=== PATIENT | female | born 1960 | race Caucasian/White ===

== ENCOUNTER → 2022-03-04 08:05 | Outpatient (CLI) | payer OTHER, SELFPAY | PROVIDERS: Visit Provider Internal Medicine | DX: Z01.818 Encounter for other preprocedural examination (principal); Z20.822 Contact with and (suspected) exposure to COVID-19 | CPT/HCPCS: C9803; U0003; U0005 ==

== ENCOUNTER → 2022-08-27 09:40 | Outpatient (CLI) | payer OTHER, SELFPAY ==
[2022-08-27 10:41] LABS: Basophils # 0.1 K/mm3 (0-0.2); Basophils % 1.3 % (0.1-2.0); Eosinophils # 0.2 K/mm3 (0.0-0.4); Hematocrit 40.7 % (37.0-47.0); Hemoglobin 12.9 g/dL (12.2-16.2); Lymphocytes # 1.7 K/mm3 (0.7-4.5); Lymphocytes % 38.7 % (10-50); Mean Corpuscular HGB Conc 31.6 g/dL (31.8-35.4); Mean Corpuscular Hemoglobin 32.5 pg (27.0-31.2); Mean Corpuscular Volume 102.8 fl (81-99); Mean Platelet Volume 7.5 fl (7.4-10.4); Monocytes # 0.2 K/mm3 (0.1-1.0); Monocytes % 5.4 % (1.7-9.3); Neutrophils # 2.2 K/mm3 (1.8-7.8); Neutrophils % 50.5 % (37.0-80.0); Platelet Count 298 K/mm3 (142-424); Red Blood Count 3.96 M/mm3 (4.20-5.40); White Blood Count 4.4 K/mm3 (4.8-10.8)
[2022-08-27 11:02] LABS: Chloride 102 mmol/L (98-107)
[2022-08-27 11:03] LABS: Potassium 4.8 mmoL/L (3.5-5.1); Sodium 139 mmol/L (136-145)
[2022-08-27 11:05] LABS: Alanine Aminotransferase 10 U/L (12-78); Alkaline Phosphatase 60 U/L (38-126); Anion Gap 10.8 mEq/L (5-15); Aspartate Amino Transferase 18 U/L (14-36); Bilirubin,Total 0.4 mg/dl (0.2-1.3); Blood Urea Nitrogen 22 mg/dl (7-17); Carbon Dioxide 31 mmol/L (22.0-30.0); Cholesterol 154 mg/dl (140-200); Estimated Glomerular Filt Rate 86 ml/min (>60); GFR (African American) 104 ML/MIN (>60); Triglycerides 44 mg/dl (30-150); VLDL Cholesterol 9 mg/dL (0-40)
[2022-08-27 11:06] LABS: Albumin Level 4.1 g/dl (3.5-5.0); Albumin/Globulin Ratio 1.6 (1.1-1.8); Calcium 10.1 mg/dl (8.4-10.2); Chol/HDL Ratio 1.8 (1-3.5); Globulin 2.5 g/dL (1.3-3.2); Glucose 88 mg/dl (74-100); HDL Cholesterol 87 mg/dl (40-60); Total Protein,Serum 6.6 g/dl (6.3-8.2)
== END ==
PROVIDERS: PCP Internal Medicine; Visit Provider Internal Medicine
DX: M06.9 Rheumatoid arthritis, unspecified (principal); Z13.220 Encounter for screening for lipoid disorders
CPT/HCPCS: 36415; 80053; 80061; 85025

== ENCOUNTER 2025-06-25 09:21 | Outpatient (CLI) | payer OTHER, SELFPAY ==
--- NOTE | 2025-06-25 | XR_ITS ---
PROCEDURE INFORMATION: Exam: XR Right Shoulder Exam date and time: 06/25/2025 9:40 AM Age: 64 years old Clinical indication: Pain; Shoulder; Right; Additional info: Right shoulder pain x 4 months, rotator cuff vs arthritis TECHNIQUE: Imaging protocol: Radiologic exam of the right shoulder. Views: 2 or more views. COMPARISON: No relevant prior studies available. FINDINGS: Bones/joints: Mild dextroscoliosis of the midthoracic spine. Degenerative changes of the right acromioclavicular joint, with joint space narrowing and osteophyte formation. No acute fracture or dislocation. Soft tissues: Normal. IMPRESSION: No acute fracture or dislocation.
--- OUTSIDE RECORDS SUMMARY | 2025-06-25 09:30 | XMS_ITS | Encounter Summary ---
Author Organization [facility] ([place], [place], [place], [place]) Address [address] [place] [address] Care Team Providers Care Extractor Puller Name Role Phone Celeste Miller MD Primary Care Provider [phone] Reason for Referral * Mammography (Routine) - Authorized Specialty Diagnoses / Procedures Referred By Contac t Referred To Contact Radiology Diagnoses Visit for screening mammogram Procedures MM digital mammo screen with emilie bilateral Celeste Miller MD [address] [facility] [address] [place] [address] Phone: tel: fax: [facility] [address] [place] [phone] Phone: tel: fax: Referral ID Status Reason Start Date Expiration Date V isits Requested Visits Authorized [id number] Authorized 03/28/2026 03/28/2027 1 1 Encounter Details Date Type Department Care Team (Late st Contact Info) Description 03/24/2025 Outside Orders [facility] [address] [place] [address] [place] [phone] Celeste Miller MD [address] [facility] [address] [place] [address] Visit for screening mammogram (Primary Dx) Social History Tobacco Use Types Packs/Day Years Used Date Smoking Tobacco: Never Smokeless Tobacco: Never Alcohol Use Standard Drinks/Week Comments Never 0 (1 standard drink = 0.6 oz pur e alcohol) B1300 Health Literacy Answer Date Recor ded How often do you need to hav e someone help you when you read instructions, pamphlets, or other written material from your doctor or pharmacy? Never 03/25/2025 [facility] Utilities Answer Date Recorded In the past 12 months has th e electric, gas, oil, or water company threatened to shut off services in your home? No 03/25/2025 Overall Financial Resource Strain (CARDIA) Answe r Date Recorded How hard is it for you to pa y for the very basics like food, housing, medical care, and heating? Somewhat hard 03/25/2025 Hunger Vital Sign Answer Date Recorded Within the past 12 months, y ou worried that your food would run out before you got the money to buy more. Never true 03/25/20 25 Within the past 12 months, t he food you bought just didn't last and you didn't have money to get more. Never true 03/25/2025 [facility] - Transportation Answer Date Re corded In the past 12 months, has l ack of transportation kept you from medical appointments or from getting medications? No 03/13 In the past 12 months, has l ack of transportation kept you from meetings, work, or from getting things needed for daily living? No 03/25/2025 Housing Stability Vital Sign Answer Ascencion e Recorded In the last 12 months, was t here a time when you were not able to pay the mortgage or rent on time? No 03/25/2025 Number of Times Moved in the Last Year Not on fi le 03/25/2025 At any time in the past 12 m [facility], were you homeless or living in a group home (including now)? No 03/25/2025 [facility] - Mental Health Answer Date Recorde d Little interest or pleasure in doing things Not at all 03/24/2025 Feeling down, depressed, or hopeless Not at all 03/24/2025 Feeling of Stress Not on file 03/24/2025 Family and Community Support Answer Ascencion e Recorded Help with Day to Day Activities Not on file 10/31/2023 Feeling Lonely or Isolated Not on file 10/31 Educational Attainment Answer Date Brian rded Speak language other than Libyan at home Not on file 10/31/2023 Want help with school or training Not on file 10/31/2023 Substance Use Answer Date Recorded Used prescription meds for non-medical reasons N ot on file 10/31/2023 Used illegal drugs past 12 months Not on file 10/31/2023 Comments No Sex and Gender Information Value Date Recorded Sex Assigned at Female 04/09/2022 9:05 PM CDT Legal Sex Female 9:05 PM CDT Gender Identity Female 04/09/2022 9:05 PM CDT Sexual Orientation Not on file documented as of this encounter Functional Status * Over the past 2 weeks, how often have you been bothered by any of the following problems? Question Answer Date of Assessment Author Little interest or pleasure in doing things Not at all 03/24/2025 4:00 PM CDT Celeste Miller MD Feeling down, depressed, or hopeless Not at all 03/24/2025 4:00 PM CDT Celeste Miller MD Patient Health Questionnaire-2 Score 0 03/24/2025 4:00 PM CDT Zoe Miller MD documented as of this encounter Plan of Treatment Upcoming Encounters Date Type Department Care Team (Late st Contact Info) Description 03/28/2026 4:30 PM EDT Appointment [address] [place] [address] Scheduled Orders Name Type Priority Associated Diagnoses Orde r Schedule MM digital mammo screen with emilie bilateral Imaging Routine Visit for screening mammogram Expected: 03/28/2026, Expires: 03/28/2027 documented as of this encounter Visit Diagnoses Diagnosis Visit for screening mammogram- Primary documented in this encounter Care Teams Extractor Puller Relationship Specialty Start Date End Date Celeste Miller MD [address] [facility] [address] [place] [address] PCP - General Internal Medicine/Pediatrics 08/13/22 documented as of this encounter
--- OUTSIDE RECORDS SUMMARY | 2025-06-25 09:30 | XMS_ITS | Encounter Summary ---
Author Organization [facility] ([place], [place], [place], [place]) Address [address] [place] [address] Care Team Providers Care Cutter Aluminum Sheet Name Role Phone Celeste Miller MD Primary Care Provider [phone] Reason for Visit * Reason Comments Medication Refill Encounter Details Date Type Department Care Team (Late st Contact Info) Description 04/07/2023 Refill [facility] Primary Care [address] [facility] [address] [place] [address] Celeste Miller MD [address] [facility] [address] [place] [address] Social History Tobacco Use Types Packs/Day Years Used Date Smoking Tobacco: Never Smokeless Tobacco: Never Alcohol Use Standard Drinks/Week Comments Never 0 (1 standard drink = 0.6 oz pur e alcohol) Comments No Sex and Gender Information Value Date Recorded Sex Assigned at Female 04/09/2022 9:05 PM CDT Legal Sex Female 9:05 PM CDT Gender Identity Female 04/09/2022 9:05 PM CDT Sexual Orientation Not on file documented as of this encounter Plan of Treatment Upcoming Encounters Date Type Department Care Team (Late Contact Info) Description 03/28/2026 4:30 PM EDT Appointment [address] [place] [address] documented as of this encounter Visit Diagnoses Not on filedocumented in this encounter Care Teams Cutter Aluminum Sheet Relationship Specialty Start Date End Date Celeste Miller MD [address] [facility] [address] [place] [address] PCP - General Internal Medicine/Pediatrics 08/13/22 documented as of this encounter
--- OUTSIDE RECORDS SUMMARY | 2025-06-25 09:30 | XMS_ITS | Clinical Summary ---
Author Organization [facility] Address [address] [place] [address] Care Team Providers Care Roustabout Crew Pusher Name Role Phone Celeste Miller MD Primary Care Provider Allergies Active Allergy Reactions Criticality Noted Date Comments Latex Angioedema,Unknown - Low Severity Low Medications Cyanocobalamin (Vitamin B 12) 500 MCG tablet Take 1 tablet by mouth Daily. Active traZODone (DESYREL) 50 MG tablet Take 1 tablet by mouth Daily. After meals Active Calcium Carbonate (Calcium 600) 1500 (600 Ca) MG tablet Take 1 tablet by mouth Daily. Active Cholecalciferol (Vitamin D-3) 125 MCG (5000 UT) tablet Take by mouth Daily. Active B Complex-C (B COMPLEX-VITAMIN C PO) Take by mouth. Folic acid 400 mcg once daily Active magnesium oxide (MAG-OX) 400 MG tablet Take by mouth Daily. Active Specialty Vitamins Products (Biotin Plus Keratin) 56975-589 MCG-MG tablet Take by mouth Daily. Active hydroxychloroquine (PLAQUENIL) 200 MG tabletIndications:R heumatoid arthritis involving multiple sites with positive rheumatoid factor,High risk medication use Take 1 tablet by mouth Daily. 90 tablet 1 5 Active naproxen (NAPROSYN) 500 MG tabletIndications:P rimary osteoarthritis involving multiple joints,assisted (current) use of non-steroidal anti-inflammatories (nsaid) Take 1 tablet by mouth 2 (Two) Times a Day With Meals. 180 tablet 1 5 Active Active Problems Problem Noted Date Diagnosed Date High risk medication use 05/05/2024 Assessment & Plan (10/29/2024 11:03 AM EST): * Plaquenil 200 mg PO once /day for RA * She previously did not tolerate Plaquenil 200 mg PO BID On this medication the patient needs to have an eye exam at least once/year to monitor for toxicity. No eye complaints today. No recent serious infections Assessment & Plan (05/05/2024 2:38 PM EDT): * Plaquenil 200 mg PO once /day for RA * She previously did not tolerate Plaquenil 200 mg PO BID On this medication the patient needs to have an eye exam at least once/year to monitor for toxicity. No eye complaints today. No recent serious infections intermediate project manager (current) use of n on-steroidal anti-inflammatories (nsaid) 05/05/2024 Assessment & Plan (10/29/2024 11:03 AM EST): * Naproxen 500 mg PO BID PRN For joint pain relief Do not take over-the counter anti-inflammatory medicines, such as ibuprofen or naproxen (Advil, Motrin, Aleve and others), as they may cause problems when combined with your prescription medications. In general, low dose daily aspirin for the treatment or prevention of heart disease or stroke is safe to take. Acetaminophen (Tylenol) is generally safe to take as directed for headaches, cramps or other aches and pains or fever reduction Assessment & Plan (05/05/2024 8:16 AM EDT): * Naproxen 500 mg PO BID PRN For joint pain relief Do not take over-the counter anti-inflammatory medicines, such as ibuprofen or naproxen (Advil, Motrin, Aleve and others), as they may cause problems when combined with your prescription medications. In general, low dose daily aspirin for the treatment or prevention of heart disease or stroke is safe to take. Acetaminophen (Tylenol) is generally safe to take as directed for headaches, cramps or other aches and pains or fever reduction Hair loss 05/05/2024 Assessment & Plan (11/02/2024 2:41 PM EST): She reports copious amounts of hair loss. She has tried numerous OTC vitamins and topicals/shampoos with no luck. She has not been able to see dermatology yet due to work schedule Assessment & Plan (05/05/2024 2:37 PM EDT): She reports copious amounts of hair loss. She has tried numerous OTC vitamins and topicals/shampoos with no luck. Refer to dermatology for other options. Rheumatoid arthritis 03/29/2024 Assessment & Plan (11/02/2024 2:41 PM EST): * Medications/treatments/interventions tried include: Tylenol, she saw Rheumatology in [facility], Plaquenil, Trazodone, Naproxen, methotrexate/folic acid, knee injections 1. She previously tried/failed methotrexate & folic acid 2. Continue Plaquenil 200 mg PO daily. 3. Follow up in 4-6 months 4. Check labs today Assessment & Plan (05/05/2024 2:38 PM EDT): * Medications/treatments/interventions tried include: Tylenol, she saw Rheumatology in [facility], Plaquenil, Trazodone, Naproxen, methotrexate/folic acid, knee injections 1. She previously tried/failed methotrexate & folic acid 2. She is taking Plaquenil 200 mg PO daily. She has been taking one a day. 3. Follow up in 4-6 months 4. Check labs 5. She has had hair loss with plaquenil use. Next option would be biologic as other DMARDs have hair loss associated with them as well. Osteoarthritis 03/29/2024 Assessment & Plan (10/29/2024 11:03 AM EST): * Medications/treatments/interventions tried include: Tylenol, he saw Rheumatology in [facility], Plaquenil, Trazodone, Naproxen, methotrexate/folic acid, knee injections 1. Tylenol PRN is ok as directed 2. She has tried NSAIDs like Naproxen PRN. Refill today 3. She has had knee injections Assessment & Plan (05/05/2024 8:14 AM EDT): * Medications/treatments/interventions tried include: Tylenol, he saw Rheumatology in [facility], Plaquenil, Trazodone, Naproxen, methotrexate/folic acid, knee injections 1. Tylenol PRN is ok as directed 2. She has tried NSAIDs like Naproxen PRN. Refill today 3. She has had knee injections Fibromyalgia 03/29/2024 Assessment & Plan (10/29/2024 11:03 AM EST): 1. H & P consistent with this diagnosis. 2. Encourage aerobic activity and sleep hygiene. 3. If she has not had a sleep study/consultation consider getting this done. 4. Tylenol PRN is ok as directed 5. She has taken NSAIDS like Naproxen 6. She has tried taking Trazodone to try and improve sleep 7. She did not continue on Cymbalta as she saw no difference with taking the medication. Assessment & Plan (05/05/2024 2:40 PM EDT): 1. H & P consistent with this diagnosis. 2. Encourage aerobic activity and sleep hygiene. 3. If she has not had a sleep study/consultation consider getting this done. 4. Tylenol PRN is ok as directed 5. She has taken NSAIDS like Naproxen 6. She has tried taking Trazodone to try and improve sleep 7. She did not continue on Cymbalta as she saw no difference with taking the medication. Encounters Date Type Department Care Team Description 06/06/2025 Telephone [facility] [address] [place] [phone] Lynn Espinal APRN Advice Only from Last 3 Months Family History Medical History Relation Name Comments Diabetes Father Cancer Mother unknown Hypertension Mother Scleroderma Mother Relation Name Status Comments Father Mother Social History Tobacco Use Types Packs/Day Years Used Date Smoking Tobacco: Never Smokeless Tobacco: Never Tobacco Cessation:Counseling Given: Not Answered Alcohol Use Standard Drinks/Week Comments Never 0 (1 standard drink = 0.6 oz pur e alcohol) Comments Unknown Sex and Gender Information Value Date Recorded Sex Assigned at Not on file Legal Sex Female 12:07 PM EDT Gender Identity Not on file Sexual Orientation Not on file Last Filed Vital Signs Vital Sign Reading Time Taken Comments Blood Pressure 130/70 11/02/2024 2:28 PM EST Pulse 72 11/02/2024 2:28 PM EST Temperature 36.4 C (97.6 F) 11/02/2024 2:28 PM EST Respiratory Rate - - Oxygen Saturation - - Inhaled Oxygen Concentration - - Weight 69.8 kg (153 lb 14.4 oz) 11/02/2024 2:28 PM EST Height 175.3 cm (5' 9 ) 11/02/2024 2:28 PM EST Body Mass Index 22.73 11/02/2024 2:28 PM EST Plan of Treatment Upcoming Encounters Date Type Department Care Team (Late st Contact Info) Description 07/07/2025 8:30 AM EDT Office Visit [facility] [address] [facility] [address] [place] [id number] Lynn Espinal APRN [address] [facility] [address] [place], [place] [id number] Health Maintenance Due Date Last Done Comments Annual Gynecologic Pelvic an d Breast Exam 1960 TDAP/TD VACCINES (1 - Tdap) 1981 PAP SMEAR 1983 COLOGUARD 2007 COLON CANCER SCREENING 5 YEA R SIGMOIDOSCOPY 2007 COLONOSCOPY [address] CANCER SCREENING 2007 CT COLONOGRAPHY 2007 FECAL OCCULT BLOOD TEST 2007 FIT Testing (1 year) 2007 Pneumococcal Vaccine 50+ (1 of 1 - PCV) 2012 ZOSTER VACCINE (1 of 2) 2012 ANNUAL PHYSICAL 03/29/2024 HEPATITIS C SCREENING 03/29/2024 COVID-19 Vaccine ( season) 2025 INFLUENZA VACCINE 07/13/2025 MAMMOGRAM 01/06/2026 01/07/2024, 12/12, 12/26/2022 Care Teams Roustabout Crew Pusher Relationship Specialty Start Date End Date Celeste Miller MD [address] [place] [address] PCP - General Internal Medicine 02/26/23
--- OUTSIDE RECORDS SUMMARY | 2025-06-25 09:30 | XMS_ITS | Referral Summary ---
Author Organization [employer] ([place], [place], [place], [place]) Address [address] [place] [address] Care Team Providers Care Architectural Engineer Name Role Phone Celeste Miller MD Primary Care Provider [phone] Encounters Date Type Department Care Team Description 06/09/2025 Refill [facility] Primary Care [address] [facility] [address] [place] [address] Celeste Miller MD Primary insomnia from Last 3 Months Allergies Active Allergy Reactions Criticality Noted Date Comments Latex Rash Low 08/13/2022 Medications hydrOXYchloroQ UINE (PLAQUENIL) 200 mg tablet Take 1 tablet (200 mg total) by mouth 2 (two) times daily. 2 Active omega 2-pdw-ywr-fish oil (Fish OiL) 100-160-1,000 mg Cap 1,000 mg, Oral, Daily, 0 Refill(s) 2 Active ascorbic acid, vitamin C, (ascorbic acid with kamari hips) 500 MG tablet 500 mg, Oral, Daily, 0 Refill(s) 2 Active melatonin 5 mg Chew 5 mg, Oral, At Bedtime, 0 Refill(s) 2 Active biotin 5 mg Tab 5,000 mg, Oral, Daily, 0 Refill(s) 2 Active DULoxetine (CYMBALTA) 30 MG capsule Take 1 capsule (30 mg total) by mouth daily. 4 Active magnesium oxide (MAG-OX) 400 mg tablet Take 1 tablet by mouth nightly 90 tablet 4 Active naproxen (NAPROSYN) 500 MG tablet Take 1 tablet (500 mg total) by mouth 2 (two) times daily as needed for mild pain (1-3). 90 tablet 4 Active traZODone (DESYREL) 50 MG tabletIndicati ons:Primary insomnia TAKE 2 TABLETS BY MOUTH NIGHTLY 180 tablet 5 Active traZODone (DESYREL) 50 MG tabletIndicati ons:Primary insomnia TAKE 2 TABLETS BY MOUTH NIGHTLY 180 tablet 5 06/09/20 25 Discontinued Active Problems Problem Noted Date Diagnosed Date COVID-19 06/18/2023 Primary insomnia 06/18/2023 Annual physical exam 08/21/2022 RA (rheumatoid arthritis) 08/13/2022 Lupus 08/13/2022 MVP (mitral valve prolapse) 08/13/2022 At risk for sleep apnea 08/13/2022 Social History Tobacco Use Types Packs/Day Years [...] from your doctor or pharmacy? Never 03/25/2025 [facility] Utilities Answer Date Recorded In the past 12 months has th e electric, gas, oil, or water [employer] threatened to shut off services in your [...] any time in the past 12 m [facility], were you homeless or living in a senior care (including now)? No 03/25/2025 C - Mental Health Answer Date Recorde d [...] Date Brian rded Speak language other than Samoan at home Not on file 10/31/2023 Want [...] PM CDT Sexual Orientation Not on file Last Filed Vital Signs Vital Sign Reading Time Taken Comments Blood Pressure 109/71 03/24/2025 3:43 PM EDT Pulse 69 03/24/2025 3:43 PM EDT Temperature 36.8 C (98.2 F) 03/24/2025 3:43 PM EDT Respiratory Rate - - Oxygen Saturation 96% 03/24/2025 3:43 PM EDT Inhaled Oxygen Concentration - - Weight 69.8 kg (153 lb 12.8 oz) 03/24/2025 3:43 PM EDT Height 175.3 cm (5' 9 ) 03/24/2025 3:43 PM EDT Body Mass Index 22.71 03/24/2025 3:43 PM EDT Plan of Treatment Upcoming Encounters Date Type Department Care Team (Late st Contact Info) Description 03/28/2026 4:30 PM EDT Appointment [address] [address] Procedures Procedure Name Priority Date/Time Associated Diagnosis Comments MM DIGITAL MAMMO SCREEN WITH MAURI BILATERAL Routine 03/24/2025 5:03 PM EDT Visit for screening mammogram from Last 3 Months or Most Recently Relevant to Health Maintenance Results * MM digital mammo screen with mauri bilateral (03/24/2025 5:03 PM EDT) Anatomical Region Laterality Modality Breast Bilateral Mammography 03/27/2025 12:3 3 PM EDT Impressions 03/27/2025 12:36 PM EDT No mammographic evidence of malignancy. BI-RADS CATEGORY: 2 , BENIGN FINDING(S). RECOMMENDED FOLLOW-UP: Routine annual screening mammography. A letter including results and recommendations was sent to the patient. Density notification was provided as well. Patient information entered into a reminder system with a target due date for the next mammogram. At our facility, a upper sioux marker is positioned over a visible skin lesion and a linear marker is used to indicate a scar. A triangular marker is placed on a self reported palpable finding. Mammography does not detect approximately 10-15% of breast cancers. An annual clinical breast exam by the patient's breast care physician and regular monthly self breast exams by the patient are integral parts of breast cancer screening. A normal mammogram does not completely exclude the presence of breast cancer, especially if there is an abnormal finding on physical exam. When clinically indicated, a biopsy should not be deferred because of a normal mammogram report. : 1960 Images reviewed, interpreted, and dictated by Maday Kelly MD Narrative 03/27/2025 12:36 PM EDT BILATERAL SCREENING DIGITAL MAMMOGRAPHY CLINICAL INDICATION: Routine screening FAMILY HISTORY: Mother diagnosed with breast cancer at 50... TECHNIQUE: Bilateral CC, exaggerated CC and MLO views were obtained with 2-D and 3-D digital acquisitions. The study was read with the assistance of CAD. COMPARISON: Previous studies back to December 26, 2022. FINDINGS: No spiculated mass, calcifications or architectural distortion is seen. The breasts are heterogeneously dense, which may obscure small masses. No change identified. Celeste Miller MD IMG MAMMOGRAPHY ORDERABLES Final Result from Last 3 Months or Most Recently Relevant to Health Maintenance Insurance [employer] Care Teams Architectural Engineer Relationship Specialty Start Date End Date Celeste Miller MD [address] [facility] [address] [place] [address] PCP - General Internal Medicine/Pediatrics 08/13/22
--- OUTSIDE RECORDS SUMMARY | 2025-06-25 09:30 | XMS_ITS | Encounter Summary ---
Author Organization [facility] Address [address] [place] [address] Care Team Providers Care Broiler Chef Or Cook Name Role Phone Celeste Miller MD Primary Care Provider [phone] Reason for Referral * Consultation (Routine) - Closed Specialty Diagnoses / Procedures Referred By Contjavon t Referred To Contact Obstetrics and Gynecology Diagnoses Cervical cancer screening Celeste Miller MD [address] [id number] Phone: tel: fax: Referral ID Status Reason Start Date Expiration Date V isits Requested Visits Authorized [id number] Closed Specialty Services Required 03/25/2024 2025 1 1 Encounter Details Date Type Department Care Team ([facility] Contact Info) Description 03/25/2024 [facility] [address] [place] [address] Celeste Miller MD [address] [id number] Cervical cancer screening (Primary Dx) Social History Tobacco Use Types Packs/Day Years Used Date Smoking Tobacco: Never Smokeless Tobacco: Never Alcohol Use Standard Drinks/Week Comments Yes 0 (1 standard drink = 0.6 oz pur e alcohol) social drinker Comments Unknown Sex and Gender Information Value Date Recorded Sex Assigned at Not on file Legal Sex Female 3:54 PM EDT Gender Identity Not on file Sexual Orientation Not on file documented as of this encounter Plan of Treatment Upcoming Encounters Date Type Department Care Team (Late st Contact Info) Description 08/24/2025 10:45 AM EST Office Visit Medical Office Building Obstetrics and Gynecology [address] [facility], [address] [place] [address] Cammie Joseph, GOLF SHOE SPIKE ASSEMBLER [address] [facility] [address] [place] [address] Scheduled Referrals Name Type Priority Associated Diagnoses Order Schedule Ambulatory referral to Obstetrics Outpatient Referral Routine Cervical cancer screening Expected: 03/25/2024 (Approximate), Expires: 2025 documented as of this encounter Visit Diagnoses Diagnosis Cervical cancer screening- Primary Screening for malignant neoplasm of the cervix documented in this encounter Additional Health Concerns Assessment Noted Time A fall risk assessment has been complete d for the patient 06/11/2022 2:16 PM EDT documented as of this encounter Care Teams Broiler Chef Or Cook Relationship Specialty Start Date End Date Celeste Miller MD [address] [facility] [address] [place] [address] PCP - General Internal Medicine 04/26/22 documented as of this encounter
--- OUTSIDE RECORDS SUMMARY | 2025-06-25 09:30 | XMS_ITS | Encounter Summary ---
Author Organization [facility] Address [address] [place] [address] Care Team Providers Care Delivery And Mail Sorter Name Role Phone Celeste Miller MD Primary Care Provider [phone] Encounter Details Date Type Department Care Team (Late Contact Info) Description 12/17/2022 [facility] [address] [place] [address] Celeste Miller MD [address] [facility] [address] [place], [place] [id number] Social History Tobacco Use Types Packs/Day Years [...] Office Building Obstetrics and Gynecology [address] [facility] [address], [address] [place] [address] Cammie Joseph, CHACORTA [address] [facility] [address] [place] [address] documented as of this encounter Visit Diagnoses Not on filedocumented in this encounter Additional Health Concerns Assessment Noted Time A fall risk assessment has been complete d for the patient 06/11/2022 2:16 PM EDT documented as of this encounter Care Teams Delivery And Mail Sorter Relationship Specialty Start Date End Date Celeste Miller MD [address] [place] [address] PCP - General Internal Medicine 04/26/22 documented as of this encounter
--- OUTSIDE RECORDS SUMMARY | 2025-06-25 09:30 | XMS_ITS | Encounter Summary ---
Author Organization [facility] Address [address] [place] [address] Care Team Providers Care Guitar Player Name Role Phone Celeste Miller MD Primary Care Provider Reason for Referral * Consultation (Routine) - Pending Review Specialty Diagnoses / Procedures Referred By Sierra deleon Referred To Contact Dermatology Diagnoses Hair loss Rash Itching Procedures NH OFFICE/OUTPATIENT NEW MODERATE MDM 45 MINUTES Aixa Alberto APRN [address] [address] Phone: tel: fax: David Andino MD [address] [place] [address] ATTN: [place] [address] Phone: tel: fax: Referral ID Status Reason Start Date Expiration Date Visits Requested Visits Authorized Pending Review Specialty Services Required 06/07/2025 09/06/2026 1 1 Reason for Visit * Reason Onset Date Comments Advice Only 06/06/2025 Encounter Details Date Type Department Care Team (Late st Contact Info) Description 06/06/2025 Telephone [facility] RHEUMATOLOGY [address] [address] Lynn Espinal APRN [address] [address] Advice Only Social History Tobacco Use Types Packs/Day Years [...] on file documented as of this encounter Progress Notes * Aixa Alberto APRN - 06/07/2025 2:23 PM EDTAddended by: AIXA ALBERTO on: 06/07/2025 02:23 PM Modules accepted: Orders * Aixa Alberto APRN - 06/07/2025 12:13 PM EDTAddended by: AIXA ALBERTO on: 06/07/2025 12:13 PM Modules accepted: Orders documented in this encounter Miscellaneous Notes * Telephone Encounter - Shiela Warren MA - 06/07/2025 3:53 PM EDT I sent message to Kelley in Teams asking her to mail lab orders to pt. - TAYLOR Frazier * Telephone Encounter - Shiela Warren MA - 06/07/2025 1:40 PM EDT Pt notified. She would like a referral to Dermatology. She would like her lab orders mailed to her so she can have them done at [facility]. I sent message to clinical in Teams asking them to print and mail to pt. -TAYLOR Frazier * Telephone Encounter - Shiela Warren MA - 06/07/2025 11:59 AM EDT Pt doesn't want to take the Prednisone at this time. She will let us know if she changes her mind. She wants to know if you think she needs to have any labs done. If so, she'd like to have done priorto her appt in Jun. Also, she wants to know if there's any shampoos that she can try to help soothe her scalp. Please advise. -TAYLOR Frazier * Telephone Encounter - Shiela Warren MA - 06/07/2025 11:21 AM EDT I spoke with pt. She said the itchy scalp comes and goes, but she says it's painful to wash and increased pain with flare up. She said that her hair falls out more quickly when in a flare. She said that she's been in a flare up for the past week. She's c/o fatigue, shortness of breath, painful wrists and hands. No swelling/redness and no illness or new meds. Please advise. -TYALOR Frazier * Telephone Encounter - Clarita Cast MA - 06/06/2025 3:41 PM EDT Returned patient call, no answer. Left VM for patient to return phone call to discuss her issue(s). * Telephone Encounter - Siri Koenig RegSched Rep - 06/06/2025 1:39 PM EDT Hub staff attempted to follow warm transfer process and was unsuccessful Caller: Regina Hernandez Relationship to patient: Self Best call back number: [phone] Patient is needing: PT WOULD LIKE TO SPEAK TO THE NURSE ABOUT HAVING ITCHY SCALP AND HURTS TO TOUCH. PLS CALL PT TO DISCUSS. documented in this encounter Plan of Treatment Upcoming Encounters Date Type Department Care Team (Late st Contact Info) Description 07/07/2025 8:30 AM EDT Office Visit [facility] RHEUMATOLOGY 330 [facility] [address] [place] [id number] Lynn Espinal APRN 330 [facility] [address] [place] [address] Scheduled Orders Name Type Priority Associated Diagnoses Orde r Schedule Comprehensive Metabolic Panel Lab Routine Fibromyalgia Rheumatoid arthritis involving multiple sites with positive rheumatoid factor Expected: 06/12/2025 (Approximate), Expires: 09/07/2026 C-reactive Protein Lab Routine Fibromyalgia Rheumatoid arthritis involving multiple sites with positive rheumatoid factor Expected: 06/12/2025 (Approximate), Expires: 09/07/2026 Sedimentation Rate Lab Routine Fibromyalgia Rheumatoid arthritis involving multiple sites with positive rheumatoid factor Expected: 06/12/2025 (Approximate), Expires: 09/07/2026 CBC (No Diff) Lab Routine Fibromyalgia Rheumatoid arthritis involving multiple sites with positive rheumatoid factor Expected: 06/12/2025 (Approximate), Expires: 09/07/2026 TSH Lab Routine Fibromyalgia Rheumatoid arthritis involving multiple sites with positive rheumatoid factor Hair loss Expected: 06/12/2025 (Approximate), Expires: 09/07/2026 T4, free Lab Routine Fibromyalgia Rheumatoid arthritis involving multiple sites with positive rheumatoid factor Hair loss Expected: 06/12/2025 (Approximate), Expires: 09/07/2026 Vitamin B12 Lab Routine Fibromyalgia Rheumatoid arthritis involving multiple sites with positive rheumatoid factor Hair loss Expected: 06/12/2025 (Approximate), Expires: 09/07/2026 Folate Lab Routine Fibromyalgia Rheumatoid arthritis involving multiple sites with positive rheumatoid factor Hair loss Expected: 06/12/2025 (Approximate), Expires: 09/07/2026 Vitamin D,25-Hydroxy Lab Routine Fibromyalgia Rheumatoid arthritis involving multiple sites with positive rheumatoid factor Hair loss Expected: 06/12/2025 (Approximate), Expires: 09/07/2026 Thyroglobulin Antibody Lab Routine Fibromyalgia Rheumatoid arthritis involving multiple sites with positive rheumatoid factor Hair loss Expected: 06/12/2025 (Approximate), Expires: 09/07/2026 Thyroid Peroxidase Antibody Lab Routine Fibromyalgia Rheumatoid arthritis involving multiple sites with positive rheumatoid factor Hair loss Expected: 06/12/2025 (Approximate), Expires: 09/07/2026 documented as of this encounter Visit Diagnoses Diagnosis Fibromyalgia- Primary Unspecified myalgia and myositis Rheumatoid arthritis involving multiple sites with positive rheumatoid factor Hair loss Unspecified alopecia Rash Rash and other nonspecific skin eruption Itching Unspecified pruritic disorder documented in this encounter Care Teams Guitar Player Relationship Specialty Start Date End Date Celeste Miller MD [address] [place] [address] PCP - General Internal Medicine 02/26/23 documented as of this encounter
--- OUTSIDE RECORDS SUMMARY | 2025-06-25 09:30 | XMS_ITS | Clinical Summary ---
Author Organization [facility] Address [address] [place] [address] Care Team Providers Care Human Capital Consultant Name Role Phone Celeste Miller MD Primary Care Provider [phone] Allergies Active Allergy Reactions Criticality Noted Date Comments Latex Angioedema,Rash High 08/13/2022 Medications magnesium oxide (Mag-Ox) 400 (241.3 Mg) MG tablet TAKE 1 TABLET BY MOUTH AT NIGHT WITH MELATONIN FOR INSOMNIA 2 Active naproxen (Naprosyn) 500 MG tablet Take 1 tablet (500 mg) by mouth 2 (two) times a day with meals. 2 Active traZODone (Desyrel) 50 MG tablet Take 1 tablet (50 mg) by mouth every night. 2 Active hydroxychloroqu ine (Plaquenil) 200 MG tablet Take 1 tablet (200 mg total) by mouth 2 (two) times a day. 60 tablet 5 2 Active Family History Medical History Relation Name Comments Breast cancer Mother Diabetes Mother Endometriosis Mother Scleroderma Mother Relation Name Status Comments Mother Social History Tobacco Use Types Packs/Day Years Used Date Smoking Tobacco: Never Smokeless Tobacco: Never Tobacco Cessation:Counseling Given: Not Answered Alcohol Use Standard Drinks/Week Comments Yes 0 (1 standard drink = 0.6 oz pur e alcohol) social drinker PHQ-2 Answer Date Recorded Patient Health Questionnaire-2 Score 3 08/18/2024 PHQ-9 Answer Date Recorded Patient Health Questionnaire-9 Score 11 08/18/2024 Comments No Sex and Gender Information Value Date Recorded Sex Assigned at Not on file Legal Sex Female 3:54 PM EDT Gender Identity Not on file Sexual Orientation Not on file Last Filed Vital Signs Vital Sign Reading Time Taken Comments Blood Pressure 110/71 08/18/2024 10:31 AM EST Pulse 57 08/18/2024 10:31 AM EST Temperature 37.2 C (98.9 F) 06/11/2022 2:10 PM EDT Respiratory Rate 16 08/18/2024 10:31 AM EST Oxygen Saturation 93% 08/18/2024 10:31 AM EST Inhaled Oxygen Concentration - - Weight 68.2 kg (150 lb 5.7 oz) 08/18/2024 10:31 AM EST Height 176.5 cm (5' 9.5 ) 08/18/2024 10:31 AM ES T Body Mass Index 21.89 08/18/2024 10:31 AM EST Plan of Treatment Upcoming Encounters Date Type Department Care Team ([facility] st Contact Info) Description 08/24/2025 10:45 AM EST Office Visit Medical Office Building Obstetrics and Gynecology [address] [facility], [address] [place] [address] Cammie Joseph, RAD TECH [address] [place] [address] Health Maintenance Due Date Last Done Comments [facility]-HIV Screening 1962 [facility]-Hepatitis C Screening 1962 [facility]-Infant/Child/Adol SDOH Screenings 1962 [facility]- SDOH Screenings 1980 [facility]-Adult SDOH Screenings 1980 [facility]-DTaP,Tdap,and Td Vaccine s (1 - Tdap) 1981 CT Colonography 2007 Colonoscopy 2007 FIT-DNA 2007 FIT 2007 FOBT 2007 Sigmoidoscopy 2007 [facility]-Colorectal Cancer Screening 2007 [facility]-Pneumococcal Vaccine: 50 + Years (1 of 1 - PCV) 2012 [facility]-Zoster Vaccines (1 of 2) 2012 [facility]-YEYST-97 Vaccine (1 - season) 2024 [facility]-Influenza Vaccine (#1) 2025 [facility]-Depression Screening 08/18/2025 024, 08/18/2024, 06/11/2022 [facility]-Breast Cancer Screening 01/06/202612/12, 12/26/2022 [facility]-Pap Smear 08/18/2027 08/18/2024 [facility]-Cervical Cancer Screening 08/18/2029 [facility]-HPV/Cotest 08/18/2029 08/18/2024 [facility]-RSV Vaccine: 60+ Years o r (1 - 1-dose 75+ series) 2037 HPV Vaccines Aged Out No longer eligi ble based on patient's age to complete this topic [facility]-HIB Vaccines Aged Out No longer e ligible based on patient's age to complete this topic [facility]-Hepatitis A Vaccines Aged Out No longer eligible based on patient's age to complete this topic [facility]-IPV Vaccines Aged Out No longer e ligible based on patient's age to complete this topic [facility]-Rotavirus Vaccines Aged Out No lo nger eligible based on patient's age to complete this topic Procedures Procedure Name Priority Date/Time Associated Diagnosis Comments PAP TEST - CYTOLOGY Routine 08/18/2024 11:25 AM EST Cervical cancer screening Well woman exam with routine gynecological exam from Last 3 Months or Most Recently Relevant to Health Maintenance Results * Pap Test (08/18/2024 11:25 AM EST) Case Report Cytology Case: [id number] Authorizing Provider: Cammie Joseph APRN Collected: 08/18/2024 1125 Ordering Location: Medical Office Building Received: 08/18/2024 1125 Obstetrics and Gynecology First Screen: Candice Martines Specimen: ThinPrep Pap Test, Liquid-Based Cervical/Vaginal 08/31/2024 8:22 AM EST [facility] Interpretation NEGATIVE FOR INTRAEPITHELIAL LESION OR MALIGNANCY 08/31/2024 8:22 AM EST [facility] at 0822 EST Specimen Adequacy Satisfactory for evaluation; transformation zone component cannot be definitely identified due to the presence of atrophy or other hormonal changes. Slide scanned and imaged by ThinPrep Imaging System with manual review of all selected larson. 08/31/2024 8:22 AM EST [facility] Cervical cytology is a screening test primarily for squamous cancers and precursors and has associated false negative and positive results. New technologies such as liquid based sampling may decrease but will not eliminate all false negative results. Regular screening and follow-up of unexplained clinical signs and symptoms are recommended to minimize false negative results. Please see the ASCCP website (www.asccp.org)fo r followup recommendations. If HPV testing was requested, correlation with the results is suggested (please call Microbiology at [phone] for results). 08/31/2024 8:22 AM EST [facility] Menstrual Status Post-Menopausal 8:22 AM EST [facility] Contraceptive History Not Applicable 08/31/2024 8:22 AM EST [facility] Screening Type Routine Screen 2023 8:22 AM EST [facility] High Risk? No 08/31/2024 8:22 AM EST [facility] HPV Testing Requested? Request HPV Testing Regardless of Pap Test Findings 08/31/2024 8:22 AM EST [facility] Previous Cancer History No 08/31/2024 8:22 AM EST [facility] Clinical Information Z12.4 - Cervical cancer screening [ICD-10-CM] 08/31/2024 8:22 AM EST [facility] Swab Vaginal and cervical cytologic material / Unknown Non-blood Collection / Unknown 08/18/2024 11:25 AM EST 08/18/2024 11:25 AM EST Cammie Joseph APRN LAB CYTOLOGY ORDERABLES Final Result [facility] [address] [place] [address] from Last 3 Months or Most Recently Relevant to Health Maintenance Insurance [employer] Care Teams Human Capital Consultant Relationship Specialty Start Date End Date Celeste Miller MD [address] [place] [address] PCP - General Internal Medicine 04/26/22
--- OUTSIDE RECORDS SUMMARY | 2025-06-25 09:30 | XMS_ITS | Clinical Summary ---
Author Organization [employer] ([place], [place], [place], [place]) Address [address] [place] [address] Care Team Providers Care Poultry Process Worker Name Role Phone Celeste Miller MD Primary Care Provider [phone] Allergies Active Allergy Reactions Criticality Noted Date Comments Latex Rash Low 08/13/2022 Medications hydrOXYchloroQ UINE (PLAQUENIL) 200 mg tablet Take 1 tablet (200 mg total) by mouth 2 (two) times daily. 2 Active omega 8-zws-whv-fish oil (Fish OiL) 100-160-1,000 mg Cap 1,000 [...] 08/13/2022 At risk for sleep apnea 08/13/2022 Encounters Date Type Department Care Team Description 06/09/[address] [facility] [address] [facility] [address] [place] [address] Celeste Miller MD Primary insomnia from Last 3 Months Family History Medical History Relation Name Comments Diabetes type I Father Breast cancer Mother Diabetes type I Mother Relation Name Status Comments Father Mother [...] from your doctor or pharmacy? Never 03/25/2025 [facility] Utilities Answer Date Recorded In the past 12 months has th e [employer], gas, oil, or water Rosal[employer] threatened to shut off services in your [...] time in the past 12 m [facility] you [facility] or living in a fci (including now)? No 03/25/2025 [facility] Answer Date Recorde d [...] Date Brian rded Speak language other than Azerbaijani at home Not on file 10/31/2023 Want [...] Info) Description 03/28/2026 4:30 PM EDT Appointment [address] [place] [address] Health Maintenance Due Date Last Done Comments CT Colonography 1962 FOBT/FIT 1962 Fit-DNA (Cologuard) 1962 Sigmoidoscopy 1962 HIV Screening 1977 Hepatitis C Screening 1980 DTAP/TDAP/TD VACCINES (1 - Tdap) 1981 Pneumococcal 50+ years (1 of 2 - PCV) 1981 Lipid Panel 2007 Shingles Vaccine (Zoster) (1 of 2) 2012 Respiratory Syncytial Virus (RSV) Adult or (1 - Risk 60-74 years 1-dose series) 2022 COVID-19 VACCINE ( - season) 2025 Influenza Vaccine (#1) 2025 Depression Screening (12+) 03/24/2026 03/24/2025 Tobacco Cessation Counseling and Screening (12+) 03/24/2026 03/24/2025 Colonoscopy 10/13/2026 Colorectal Cancer Screening 10/13/2026 Breast Cancer Screening 03/24/2027 03/24/20 25, 01/07/2024, 12/26/2022 Pap Smear 08/18/2027 08/18/2024, 11/07/2022 Procedures Procedure Name Priority Date/Time Associated Diagnosis [...] the next mammogram. At our facility, a [place] marker is positioned over a visible skin [...] masses. No change identified. Celeste Miller MD IM MAMMOGRAPHY ORDERABLES Final Result from Last 3 Months or Most Recently Relevant to Health Maintenance Insurance [employer] Care Teams Poultry Process Worker Relationship Specialty Start Date End Date Celeste Miller MD [address] [place] [address] PCP - General Internal Medicine/Pediatrics 08/13/22
--- OUTSIDE RECORDS SUMMARY | 2025-06-25 09:30 | XMS_ITS | Encounter Summary ---
Author Organization [employer] ([place], [place], [place], [place]) Address [address] [place] [address] Care Team Providers Care Aluminum Pourer Name Role Phone Celeste Miller MD Primary Care Provider [phone] Reason for Visit * Reason Comments Medication Refill Encounter Details Date Type Department Care Team (Late st Contact Info) Description 06/09/2025 Refill [facility] Primary Care [address] [facility] [address] [place] [address] Celeste Miller MD [address] [facility] [address] [place] [address] Primary insomnia Social History Tobacco Use Types Packs/Day Years [...] from your doctor or pharmacy? Never 03/25/2025 [facility] Utilities Answer Date Recorded In the past 12 months has [employer], gas, oil, or water company threatened [...] any time in the past 12 m [facility], were you homeless or living in a penitentiary (including now)? No 03/25/2025 [facility] [...] Date Brian rded Speak language other than Vincentian at home Not on file 10/31/2023 Want [...] Info) Description 03/28/2026 4:30 PM EDT Appointment [address] [address] documented as of this encounter Visit Diagnoses Diagnosis Primary insomnia Persistent disorder of initiating or maintaining sleep documented in this encounter Care Teams Aluminum Pourer Relationship Specialty Start Date End Date Celeste Miller MD [address] [facility] [address] [place], [place] [id number] PCP - General Internal Medicine/Pediatrics 08/13/22 documented as of this encounter
--- OUTSIDE RECORDS SUMMARY | 2025-06-25 09:30 | XMS_ITS | Encounter Summary ---
Author Organization [employer] ([place], [place], [place], [place]) Address [address] [place] [address] Care Team Providers Care Digital Computer Operator Name Role Phone Celeste Miller MD Primary Care Provider [phone] Reason for Visit * Reason Onset Date Comments Medication Refill 07/09/2023 Encounter Details Date Type Department Care Team (Late st Contact Info) Description 07/09/2023 Refill [facility] Primary Care [address] [facility] [address] [place] [address] Celeste Miller MD [address] [facility] [address] [place] [address] Primary insomnia Social History Tobacco [...] on file documented as of this encounter Miscellaneous Notes * Telephone Encounter - Polina Doty - 07/09/2023 9:48 AM EDT Additional Information: The patient is out of the medication. Reason for Call: Refill request Last Visit: 06/18 Next Visit: no f/u at this time Medication name: traZODone (DESYREL) 50 MG tablet Quantity: 90 Preferred Pharmacy: [facility] Address: [address] B[address] Pharmacy Caller Name: Regina Hernandez Relation to patient: self Best Call Back OK to leave message on voicemail: yes documented in this encounter Plan of Treatment Upcoming Encounters Date Type Department Care Team (Late st Contact Info) Description 03/28/2026 4:30 PM EDT Appointment [address] [place] [address] documented as of this encounter Visit Diagnoses Diagnosis Primary insomnia Persistent disorder of initiating or maintaining sleep documented in this encounter Care Teams Digital Computer Operator Relationship Specialty Start Date End Date Celeste Miller MD [address] [facility] [address] [place] [address] PCP - General Internal Medicine/Pediatrics 08/13/22 documented as of this encounter
--- OUTSIDE RECORDS SUMMARY | 2025-06-25 09:30 | XMS_ITS | Encounter Summary ---
Author Organization [employer] ([place], [place], [place], [place]) Address [address] [place] [address] Care Team Providers Care Music Adapter Name Role Phone Celeste Miller MD Primary Care Provider [phone] Reason for Visit * Reason Onset Date Comments Error 09/08/2023 Encounter Details Date Type Department Care Team (Late st Contact Info) Description 09/08/2023 [facility] Primary Care [address] [place] [address] Celeste Miller MD [address] [place] [address] Primary insomnia Social History Tobacco [...] encounter Miscellaneous Notes * Telephone Encounter - Vero Jimenez - 09/08/2023 5:14 PM EST Error D ENGINEER documented in this encounter Plan of Treatment Upcoming Encounters Date Type Department Care Team (Late st Contact Info) Description 03/28/2026 4:30 PM EDT Appointment [address] [place] [address] documented as of this encounter Visit Diagnoses Diagnosis Primary insomnia Persistent disorder of initiating or maintaining sleep documented in this encounter Care Teams Music Adapter Relationship Specialty Start Date End Date Celeste Miller MD [address] [place] [address] PCP - General Internal Medicine/Pediatrics 08/13/22 documented as of this encounter
--- OUTSIDE RECORDS SUMMARY | 2025-06-25 09:30 | XMS_ITS | Encounter Summary ---
Author Organization [facility] Address [address] [place] [address] Care Team Providers Care Security Professionals Name Role Phone Celeste Miller MD Primary Care Provider [phone] Reason for Referral * Consultation (Routine) - Closed Specialty Diagnoses / Procedures Referred By Contac t Referred To Contact Rheumatology Diagnoses Lupus, erythematosus Rheumatoid arthritis, involving unspecified site, unspecified whether rheumatoid factor present (CMS/HCC) Celeste Miller MD [address] [place] [id number] Phone: tel: fax: Referral ID Status Reason Start Date Expiration Date V isits Requested Visits Authorized [id number] Closed Specialty Services Required 04/26/2022 10/26/2023 1 1 Encounter Details Date Type Department Care Team (Late st Contact Info) Description 04/26/2022 [facility] [address] [place] [address] Celeste Miller MD [address] [address] Lupus, erythematosus (Primary Dx); Rheumatoid arthritis, involving unspecified site, unspecified whether rheumatoid factor present (CMS/HCC) Social History Tobacco Use Types Packs/Day Years Used Date Smoking Tobacco: Never Assessed Comments Unknown Sex and Gender Information Value Date Recorded Sex Assigned at Not on file Legal Sex Female 3:54 PM EDT Gender Identity Not on file Sexual Orientation Not on file documented as of this encounter Plan of Treatment Upcoming Encounters Date Type Department Care Team ([facility] st Contact Info) Description 08/24/2025 10:45 AM EST Office Visit Medical Office Building Obstetrics and Gynecology [address], [address] [place] [address] Cammie Joseph, QA AUTOMATION DEVELOPER [address] [facility] [address] [facility] [address] [place] [address] Scheduled Referrals Name Type Priority Associated Diagnoses Orde r Schedule Ambulatory referral to Rheumatology Outpatient Referral Routine Lupus, erythematosus Rheumatoid arthritis, involving unspecified site, unspecified whether rheumatoid factor present (CMS/HCC) Expected: 04/26/2022 (Approximate), Expires: 10/27/2023 documented as of this encounter Visit Diagnoses Diagnosis Lupus, erythematosus- Primary Rheumatoid arthritis, involving unspecified site, unspecified whether rheumatoid factor present (CMS/HCC) documented in this encounter Care Teams Security Professionals Relationship Specialty Start Date End Date Celeste Miller MD [address] [place] [address] [address] [place] [address] PCP - General Internal Medicine 04/26/22 documented as of this encounter
--- OUTSIDE RECORDS SUMMARY | 2025-06-25 09:30 | XMS_ITS | Encounter Summary ---
Author Organization [employer] ([place], [place], [place], [place]) Address [address] [place] [address] Care Team Providers Care Medical Supervisor Name Role Phone Celeste Miller MD Primary Care Provider [phone] Reason for Visit * Reason Comments Medication Refill Encounter Details Date Type Department Care Team (Late st Contact Info) Description 04/06/2023 Refill [facility] Primary Care [address] [place] [address] Celeste Miller MD [address] [place] [address] Social History Tobacco Use Types [...] Info) Description 03/28/2026 4:30 PM EDT Appointment [address] [place] [address] documented as of this encounter Visit Diagnoses Not on filedocumented in this encounter Care Teams Medical Supervisor Relationship Specialty Start Date End Date Celeste Miller MD [address] [facility] [address] [place] [address] PCP - General Internal Medicine/Pediatrics 08/13/22 documented as of this encounter
[2025-06-25 09:47] LABS: Hematocrit 39.0 % (37.0-47.0); Hemoglobin 12.7 g/dL (12.2-16.2); Mean Corpuscular HGB Conc 32.6 g/dL (31.8-35.4); Mean Corpuscular Hemoglobin 32.7 pg (27.0-31.2); Mean Corpuscular Volume 100.5 fl (81-99); Nucleated Red Blood Cells % 0 %; Platelet Count 241 K/mm3 (142-424); Red Blood Count 3.88 M/mm3 (4.20-5.40); Red Cell Distribution Width-SD 47.0 fL; White Blood Count 4.2 K/mm3 (4.8-10.8)
[2025-06-25 10:22] LABS: Alanine Aminotransferase 13 U/L (12-78); Albumin Level 4.2 g/dl (3.5-5.0); Albumin/Globulin Ratio 1.6 (1.1-1.8); Alkaline Phosphatase 52 U/L (38-126); Anion Gap 11.3 mEq/L (5-15); Aspartate Amino Transferase 20 U/L (14-36); Bilirubin,Total 0.6 mg/dl (0.2-1.3); Blood Urea Nitrogen 19 mg/dl (7-17); Calcium 9.7 mg/dl (8.4-10.2); Carbon Dioxide 29 mmol/L (22.0-30.0); Chloride 106 mmol/L (98-107); Creatinine,Serum 0.80 mg/dl (0.52-1.04); Estimated Glomerular Filt Rate 73 ml/min (>60); GFR (African American) 88 ML/MIN (>60); Globulin 2.7 g/dL (1.3-3.2); Glucose 90 mg/dl (74-100); Potassium 4.3 mmoL/L (3.5-5.1); Sodium 142 mmol/L (136-145); Total Protein,Serum 6.9 g/dl (6.3-8.2)
[2025-06-25 10:27] LABS: C-Reactive Protein 0.7 mg/L (0-4)
[2025-06-25 10:39] LABS: 25-OH Vitamin D, Total 47.5 ng/mL (30-100)
[2025-06-25 10:41] LABS: Free T4 (Free Thyroxine) 1.29 ng/dl (0.78-2.19)
[2025-06-25 10:53] LABS: Thyroid Stimulating Hormone 1.04 uIU/mL (0.465-4.68)
[2025-06-25 11:18] LABS: Vitamin B12 > 1000 pg/mL (239-931)
[2025-06-25 11:34] LABS: Folate > 20.00 ng/mL
== END 2025-06-25 23:59 | disposition home or self-care (01) ==
LOC: LAB 09:28
PROVIDERS: Nurse Practitioner Family; PCP Internal Medicine; Visit Provider Internal Medicine
DX: M25.511 Pain in right shoulder (principal); G89.29 Other chronic pain; M79.7 Fibromyalgia; M05.79 Rheumatoid arthritis with rheumatoid factor of multiple sites without organ or systems involvement; L65.9 Nonscarring hair loss, unspecified
CPT/HCPCS: 36415; 73030; 80053; 82306; 82607; 82746; 84439; 84443; 85027; 85651; 86140; 86376; 86800